=== PATIENT | female | born 1935 | race Caucasian/White ===

== ENCOUNTER 2017-09-05 11:30 | Emergency (ER) | payer OTHER ==
[~2017-09-05] VITALS: Ht 154.9 cm; Wt 67.6 kg
[2017-09-05 11:39] VITALS: BP 115/62
== END 2017-09-05 12:15 | disposition left against medical advice (07) ==
LOC: ER 11:30 → EDBD 11:30 → ER 12:15
DX: R55 Syncope and collapse (principal); Z53.21 Procedure and treatment not carried out due to patient leaving prior to being seen by health care provider
CPT/HCPCS: 36415; 93005